=== PATIENT | female | born 1980 | race Two or more races ===

== ENCOUNTER 2024-05-09 06:57 | Inpatient (IN) | payer OTHER ==
[~2024-05-09 06:57] MED LIST: Dexamethasone 4 MG/ML 5 ML MDV ONE; Ketorolac 30 MG/ML SDV ONE; Lactated Ringers 1,000 ML ONE; Lidocaine 1% 4 ML ONE; Lidocaine 1% PF 2 ML SDV ONE; Midazolam 1 MG/ML 2 ML SDV ONE; Ondansetron 4 MG/2 ML SDV ONE; Propofol 200 MG/20 ML SDV ONE; Rocuronium 50 MG/5 ML Vial ONE; Sodium Chloride 0.9% 10 ML Syringe FLUSH PRN; ceFAZolin 2 GM Vial ONE; fentaNYL 250 MCG/5 ML SDV ONE
[2024-05-09 07:30] LABS: BASOPHILS PERCENT AUTO 0.5 % (0.0-1.0); EOSINOPHILS PERCENT AUTO 0.3 % (0.0-6.0); HEMATOCRIT 40.2 % (37.0-47.0); HEMOGLOBIN 12.4 gm/dl (12.0-16.0); IMMATURE GRAN ABSOLUTE AUTO 0.01 K/mm3 (0.00-0.05); IMMATURE GRAN PERCENT AUTO 0.1 % (0.0-0.4); LYMPHOCYTES PERCENT AUTO 45.5 % (24.0-44.0); MEAN CORPUSCULAR HEMOGLOBIN 26.6 pg (28.0-32.0); MEAN CORPUSCULAR HGB CONC 30.8 g/dl (32.0-36.0); MEAN CORPUSCULAR VOLUME 86.1 fl (83.0-99.0); MEAN PLATELET VOLUME 11.2 fl (9.4-12.3); MONOCYTES ABSOLUTE AUTO 0.7 K/mm3 (0.0-0.8); MONOCYTES PERCENT AUTO 7.3 % (0.0-8.0); NEUTROPHILS ABSOLUTE AUTO 4.1 K/mm3 (1.8-7.7); NEUTROPHILS PERCENT AUTO 46.3 % (41.0-71.0); PLATELET COUNT,PLT 226 K/mm3 (150-400); RED BLOOD CELL COUNT 4.67 M/mm3 (4.10-5.30); WHITE BLOOD CELL COUNT,WBC 8.88 K/mm3 (3.9-11.3)
[2024-05-09] MEDS: Lactated Ringers 1,000 ML IV SCH (07:49)
[2024-05-09 07:51] LABS: ANION GAP 13.4 (5-15); BUN/CREATININE RATIO 17.1 (14-18); CREATININE 0.7 mg/dL (0.55-1.02); EST CRCL DRUG DOSING (CG) 90.36 mL/min; POTASSIUM,K 3.4 mEq/L (3.5-5.1)
[2024-05-09] MEDS ORDERED: dexmedeTOMIDine HCl 200 MCG/2 ML SDV ONE (07:51)
[2024-05-09] MEDS ORDERED: HYDROmorphone 0.5 MG/0.5 ML Syringe ONE ×2 (08:01→08:44)
[2024-05-09] MEDS ORDERED: Sodium Chloride 0.9% 100 ML ONE (08:48)
[2024-05-09] MEDS ORDERED: Tranexamic Acid 1,000 MG/10 ML Vial ONE (08:51)
[2024-05-09] MEDS ORDERED: Neostigmine Methylsulfate 10 MG/10 ML MDV ONE (09:18)
[2024-05-09] MEDS: Bupivacaine 0.25% 10 ML SDV ONE (09:40)
[2024-05-09] MEDS ORDERED: Lactated Ringers 1,000 ML IV ONE (09:45)
[2024-05-09] MEDS ORDERED: Ondansetron 4 MG/2 ML SDV IVPUSH PRN (10:28)
[2024-05-09] MEDS ORDERED: HYDROmorphone 0.5 MG/0.5 ML Syringe IVPUSH PRN (10:28)
[2024-05-09] MEDS ORDERED: fentaNYL 100 MCG/2 ML SDV IVPUSH PRN (10:28)
[2024-05-09] MEDS ORDERED: diphenhydrAMINE 50 MG/ML SDV IVPUSH PRN (11:07)
[2024-05-09] MEDS: diphenhydrAMINE 50 MG/ML SDV IVPUSH PRN (11:10)
[2024-05-09] MEDS ORDERED: Ondansetron 4 MG Tab.DIS PO PRN (11:53)
[2024-05-09] MEDS: Sodium Chloride 0.9% 10 ML Syringe FLUSH SCH (11:57)
[2024-05-09] MEDS: Acetaminophen/oxyCODONE 325-5 MG Tab PO PRN ×2 (14:04→19:42)
[2024-05-09] MEDS: Ketorolac 30 MG/ML SDV IVPUSH PRN (18:03)
[2024-05-10] MEDS: Simethicone 80 MG Tab.Chew PO ONE (08:24)
[2024-05-10 08:51] LABS: A/G RATIO 0.8 (1-2); ALBUMIN 2.9 g/dl (3.4-5.0); ANION GAP 11.2 (5-15); BILIRUBIN TOTAL 0.6 mg/dL (0.2-1.0); CALCIUM 8.5 mg/dL (8.5-10.1); CREATININE 0.6 mg/dL (0.55-1.02); EST CRCL DRUG DOSING (CG) 105.42 mL/min; POTASSIUM,K 3.2 mEq/L (3.5-5.1); PROTEIN TOTAL,TP 6.5 g/dl (6.4-8.2)
[2024-05-10 08:53] LABS: BASOPHILS PERCENT AUTO 0.2 % (0.0-1.0); EOSINOPHILS PERCENT AUTO 0.1 % (0.0-6.0); HEMATOCRIT 35.5 % (37.0-47.0); IMMATURE GRAN ABSOLUTE AUTO 0.03 K/mm3 (0.00-0.05); IMMATURE GRAN PERCENT AUTO 0.2 % (0.0-0.4); LYMPHOCYTES ABSOLUTE AUTO 3.6 K/mm3 (1.0-4.8); LYMPHOCYTES PERCENT AUTO 29.4 % (24.0-44.0); MEAN CORPUSCULAR HEMOGLOBIN 26.2 pg (28.0-32.0); MEAN CORPUSCULAR VOLUME 84.5 fl (83.0-99.0); MEAN PLATELET VOLUME 11.3 fl (9.4-12.3); MONOCYTES ABSOLUTE AUTO 0.9 K/mm3 (0.0-0.8); MONOCYTES PERCENT AUTO 7.5 % (0.0-8.0); NEUTROPHILS ABSOLUTE AUTO 7.6 K/mm3 (1.8-7.7); NEUTROPHILS PERCENT AUTO 62.6 % (41.0-71.0); PLATELET COUNT,PLT 194 K/mm3 (150-400); WHITE BLOOD CELL COUNT,WBC 12.23 K/mm3 (3.9-11.3)
[2024-05-10] MEDS: Ibuprofen 600 MG Tab PO PRN (14:44)
[2024-05-10] MEDS: Docusate Sodium 100 MG Cap PO PRN (20:14)
== END 2024-05-11 15:10 | disposition home or self-care (01) | DRG 743 ==
LOC: JD.MS 06:57 → JD.OB 11:44
PROVIDERS: ADMIT Obstetrics & Gynecology; ATTEND Obstetrics & Gynecology
PROC: 0UT90ZZ Resection of Uterus, Open Approach (ICD-10-PCS; 2024-05-09)
PROC: 0UT70ZZ Resection of Bilateral Fallopian Tubes, Open Approach (ICD-10-PCS; principal; 2024-05-09 08:00)
DX: D25.1 Intramural leiomyoma of uterus (principal); Z79.899 Other long term (current) drug therapy
CPT/HCPCS: 00840; 36415; 80048; 80053; 81025; 85025; 86850; 86900; 86901; 94761; A9270-GY; J0665; J0690; J1100; J1170; J1200; J1885; J2250; J2405; J2704; J2710; J3010; J3490; J7120